=== PATIENT | female | born 1945 | race Two or more races ===

== ENCOUNTER 2020-01-22 12:05 | Observation (INO) | payer MEDICARE, OTHER ==
[~2020-01-22] VITALS: Ht 147.3 cm; Wt 72.4 kg
[2020-01-22] MEDS ORDERED: MECLIZINE CHEWABLE 25 MG TAB PO ONE (13:00)
[2020-01-22] MEDS ORDERED: ONDANSETRON 2MG/ML, 2ML IVPush ONE (13:00)
[2020-01-22] MEDS ORDERED: SODIUM CHLORIDE 0.9% 1,000ML IVBOLUS ONE (13:00)
[2020-01-22] MEDS ORDERED: SODIUM CHLORIDE FLUSH 10ML SYR IVF ONE (13:00)
--- NOTE | 2020-01-22 13:08 | NUR ---
lab at bedside
[2020-01-22 13:20] LABS: BASOPHILS # (AUTO) 0.01 x10^3/uL (0-0.1); BASOPHILS % (AUTO) 0 % (0-1); EOSINOPHILS # (AUTO) 0.14 x10^3/uL (0-0.4); EOSINOPHILS % (AUTO) 1 % (1-7); LYMPHOCYTES # (AUTO) 1.28 x10^3/uL (1-3.4); LYMPHOCYTES % (AUTO) 12 % (22-44); MD NO; MEAN CORPUSCULAR HEMOGLOBIN 30.6 pg (27.0-34.8); MEAN CORPUSCULAR HGB CONC 33.9 g/dL (32.4-35.8); MEAN PLATELET VOLUME 6.6 fL (7.4-10.4); MONOCYTES # (AUTO) 0.44 x10^3/uL (0.2-0.8); MONOCYTES % (AUTO) 4 % (2-9); NEUTROPHILS # (AUTO) 9.07 x10^3/uL (1.8-6.8); NEUTROPHILS % (AUTO) 83 % (42-75); PLATELET COUNT 314 x10^3/uL (130-400); RED BLOOD COUNT 4.82 x10^6/uL (3.82-5.3); RED CELL DISTRIBUTION WIDTH 12.7 % (9.6-15.2)
[2020-01-22 13:30] LABS: ALANINE AMINOTRANSFERASE 60 U/L (12-78); ALBUMIN 3.6 g/dL (3.4-5.0); ANION GAP 12 mmol/L (5-15); CALCIUM 8.7 mg/dL (8.5-10.1); CHLORIDE 82 mmol/L (98-107); CREATININE 0.63 mg/dL (0.55-1.02)
[2020-01-22 13:34] LABS: ALKALINE PHOSPHATASE 72 U/L (45-117); BILIRUBIN,TOTAL 0.5 mg/dL (0.2-1.0); TOTAL PROTEIN 8.2 g/dL (6.4-8.2); TROPONIN I < 0.015 ng/mL (0.000-0.045)
[2020-01-22] MEDS ORDERED: ONDANSETRON ODT 4 MG ONE (13:34)
[2020-01-22] MEDS ORDERED: MECLIZINE CHEWABLE 25 MG TAB ONE (13:34)
[2020-01-22 13:40] LABS: MICROSCOPIC AUTO
[2020-01-22 13:41] LABS: SALICYLATE LEVEL < 1.7 mg/dL (2.8-20.0)
--- NOTE | 2020-01-22 14:14 | NUR ---
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 rhythm nsr with rare pvcs noted- ekg obtained-provider made aware
[2020-01-22] MEDS ORDERED: NS + 40MEQ KCL 1,000 ML IV ONE ×2 (14:28→14:32)
[2020-01-22] MEDS ORDERED: CEFTRIAXONE PMX 1GM/50ML 50 ML IVPB ONE (14:30)
[2020-01-22] MEDS ORDERED: POTASSIUM CHLORIDE 20 MEQ TAB.ER.PRT PO ONE ×3 (14:30→18:00)
--- NOTE | 2020-01-22 14:30 | NUR ---
RATE ON NS FLUID BLOUS QUESTIONED WITH PROVIDER SODIUM 129 -PROVIDER WOULD LIKE INFUSED AT BOLUS RATE
[2020-01-22] MEDS ORDERED: POTASSIUM CHLORIDE 20 MEQ TAB.ER.PRT ONE ×2 (14:31→17:32)
[2020-01-22] MEDS ORDERED: CEFTRIAXONE PMX 1GM/50ML 0 ML ONE (14:31)
[2020-01-22] MEDS ORDERED: ONDANSETRON 2MG/ML, 2ML ONE (14:32)
--- NOTE | 2020-01-22 15:01 | NUR ---
LAB AT BEDSIDE- 2 SET OF BLOOD CULTURES AND LACTATE OBTAINED- TO ADMIN ABX SHORTLY WITH REASSESSMENT NAUSEA IMPTROVED TO 07/10 PROVIDER TO BEDSIDE TO EXPLAIN POC
[2020-01-22] MEDS ORDERED: DILTIAZEM 5 MG/ML, 5ML IVPush PRN (15:30)
[2020-01-22] MEDS ORDERED: PROMETHAZINE 25 MG/ML, 1ML IM PRN (15:30)
[2020-01-22] MEDS ORDERED: LABETALOL 5MG/ML, 20ML IVPush PRN ×2 (15:30)
[2020-01-22] MEDS ORDERED: ONDANSETRON 2MG/ML, 2ML IVPush PRN (15:30)
[2020-01-22] MEDS ORDERED: ACETAMINOPHEN 325 MG TABLET PO PRN (15:30)
[2020-01-22] MEDS ORDERED: BISACODYL 10 MG SUPP PR PRN (15:30)
[2020-01-22] MEDS ORDERED: MELATONIN 5 MG TABLET PO PRN (15:30)
[2020-01-22] MEDS ORDERED: POLYETHYLENE GLYCOL 17 GM PACKET PO PRN (15:30)
[2020-01-22 15:50] LABS: CHLORIDE,URINE RANDOM 178 mmol/L; POTASSIUM,URINE RANDOM 77 mmol/L; SODIUM,URINE RANDOM 126 mmol/L
[2020-01-22 16:54] LABS: ANION GAP 13 mmol/L (5-15); CALCIUM 8.3 mg/dL (8.5-10.1); CHLORIDE 84 mmol/L (98-107); CREATININE 0.49 mg/dL (0.55-1.02)
[2020-01-22] MEDS ORDERED: AMLODIPINE 2.5 MG TABLET PO ONE (17:00)
[2020-01-22] MEDS ORDERED: MAGNESIUM SULFATE PMX 2GM/50ML 50 ML IV ONE (17:00)
[2020-01-22] MEDS ORDERED: MECLIZINE 25 MG TABLET PO PRN (17:00)
--- NOTE | 2020-01-22 17:01 | NUR ---
Patient remains dizzy/nauseated. Patient asking if she can defer po potassium. Outsole Splicer to call hospitalist To Ct scan at 1701
[2020-01-22] MEDS ORDERED: SODIUM CHLORIDE 0.9% 1,000 ML IV SCH (17:30)
[2020-01-22] MEDS ORDERED: PROMETHAZINE 25 MG/ML, 1ML ONE (17:31)
[2020-01-22] MEDS ORDERED: MAGNESIUM SULFATE PMX 2GM/50ML 50 ML ONE (17:32)
[2020-01-22] MEDS ORDERED: POTASSIUM CHLORIDE 40 MEQ in SODIUM CHLORIDE 0.9% 500 ML IV ONE (18:00)
[2020-01-22 19:25] VITALS: BP 145/78
[2020-01-22 19:41] LABS: TROPONIN I < 0.015 ng/mL (0.000-0.045)
[2020-01-22] MEDS: ENOXAPARIN 40 MG/0.4 ML SQ SCH (19:53)
[2020-01-22 21:27] LABS: OSMOLALITY,URINE 543 mOsm/kg (500-850)
[2020-01-22 23:30] LABS: ANION GAP 11 mmol/L (5-15); CALCIUM 8.3 mg/dL (8.5-10.1); CHLORIDE 91 mmol/L (98-107); CREATININE 0.79 mg/dL (0.55-1.02)
[2020-01-23 00:07] VITALS: BP 132/75
[2020-01-23 05:59] LABS: BASOPHILS # (AUTO) 0.03 x10^3/uL (0-0.1); BASOPHILS % (AUTO) 0 % (0-1); EOSINOPHILS # (AUTO) 0.09 x10^3/uL (0-0.4); EOSINOPHILS % (AUTO) 1 % (1-7); LYMPHOCYTES # (AUTO) 2.21 x10^3/uL (1-3.4); LYMPHOCYTES % (AUTO) 19 % (22-44); MD NO; MEAN CORPUSCULAR HEMOGLOBIN 29.9 pg (27.0-34.8); MEAN PLATELET VOLUME 6.1 fL (7.4-10.4); MONOCYTES # (AUTO) 1.17 x10^3/uL (0.2-0.8); MONOCYTES % (AUTO) 10 % (2-9); NEUTROPHILS # (AUTO) 7.95 x10^3/uL (1.8-6.8); NEUTROPHILS % (AUTO) 69 % (42-75); PLATELET COUNT 318 x10^3/uL (130-400); RED BLOOD COUNT 4.59 x10^6/uL (3.82-5.3)
[2020-01-23 06:12] LABS: CHLORIDE 97 mmol/L (98-107)
[2020-01-23 06:31] LABS: ANION GAP 7 mmol/L (5-15); CALCIUM 8.7 mg/dL (8.5-10.1); CREATININE 0.69 mg/dL (0.55-1.02)
[2020-01-23 06:40] VITALS: BP 131/74
[2020-01-23] MEDS ORDERED: SITA100T PO (07:31)
[2020-01-23] MEDS ORDERED: VALS1TAB30 PO (07:31)
[2020-01-23] MEDS ORDERED: AMLO5TAB4 PO (07:31)
[2020-01-23] MEDS ORDERED: IBUP-1223 PO (07:47)
[2020-01-23] MEDS: metFORMIN 500 MG TABLET PO SCH (08:41)
[2020-01-23] MEDS: VALSARTAN 80 MG TABLET PO SCH (08:41)
[2020-01-23] MEDS: SENNA/DOCUSATE TABLET PO SCH (08:50)
[2020-01-23] MEDS ORDERED: SODIUM CHLORIDE 0.45% 1,000 ML IV SCH (09:30)
[2020-01-23 09:50] LABS: ANION GAP 7 mmol/L (5-15); CALCIUM 8.3 mg/dL (8.5-10.1); CHLORIDE 101 mmol/L (98-107); CREATININE 0.86 mg/dL (0.55-1.02)
[2020-01-23 12:14] VITALS: BP 129/68
[2020-01-23 15:41] LABS: ANION GAP 8 mmol/L (5-15); CALCIUM 8.7 mg/dL (8.5-10.1); CHLORIDE 102 mmol/L (98-107); CREATININE 0.87 mg/dL (0.55-1.02)
[2020-01-23] MEDS: DEXTROSE 5% 1,000 ML IV SCH (16:48)
[2020-01-23] MEDS: ENOXAPARIN 40 MG/0.4 ML SQ SCH (16:49)
[2020-01-23 18:46] VITALS: BP 134/79
[2020-01-23 21:25] LABS: ANION GAP 7 mmol/L (5-15); CALCIUM 8.3 mg/dL (8.5-10.1); CHLORIDE 106 mmol/L (98-107); CREATININE 0.71 mg/dL (0.55-1.02)
[2020-01-24] MEDS: DEXTROSE 5% 1,000 ML IV SCH ×2 (00:30→10:01)
[2020-01-24 02:10] VITALS: BP 124/81
[2020-01-24 05:05] LABS: ANION GAP 6 mmol/L (5-15); CALCIUM 8.4 mg/dL (8.5-10.1); CHLORIDE 105 mmol/L (98-107); CREATININE 0.68 mg/dL (0.55-1.02)
[2020-01-24 06:31] VITALS: BP 148/76
[2020-01-24] MEDS: metFORMIN 500 MG TABLET PO SCH (08:32)
[2020-01-24] MEDS: VALSARTAN 80 MG TABLET PO SCH (08:33)
[2020-01-24] MEDS: SENNA/DOCUSATE TABLET PO SCH (08:35)
[2020-01-24 09:36] LABS: ANION GAP 6 mmol/L (5-15); CALCIUM 8.7 mg/dL (8.5-10.1); CHLORIDE 103 mmol/L (98-107); CREATININE 0.78 mg/dL (0.55-1.02)
[2020-01-24 12:25] VITALS: BP 172/86
[2020-01-24] MEDS ORDERED: IBUPROFEN 200 MG TABLET PO PRN (14:00)
[2020-01-24 15:24] LABS: ANION GAP 8 mmol/L (5-15); CALCIUM 8.5 mg/dL (8.5-10.1); CHLORIDE 101 mmol/L (98-107); CREATININE 0.74 mg/dL (0.55-1.02)
[2020-01-24] MEDS ORDERED: VALS320T2 PO (15:41)
[2020-01-24] MEDS ORDERED: AMLO10TA8 PO (15:41)
== END 2020-01-24 17:06 | disposition home or self-care (01) ==
LOC: ED 13:58 → EDIP 14:26 → INTOOBSV 14:26 → 4WST 17:59
PROVIDERS: ADMIT Internal Medicine; ATTEND Internal Medicine
DX: R42 Dizziness and giddiness (principal); E87.1 Hypo-osmolality and hyponatremia; E87.6 Hypokalemia; D32.9 Benign neoplasm of meninges, unspecified; I10 Essential (primary) hypertension; E11.9 Type 2 diabetes mellitus without complications; J45.909 Unspecified asthma, uncomplicated; N30.90 Cystitis, unspecified without hematuria; K59.09 Other constipation; G89.29 Other chronic pain; M54.9 Dorsalgia, unspecified; E78.00 Pure hypercholesterolemia, unspecified; K59.00 Constipation, unspecified; T50.2X5A Adverse effect of carbonic-anhydrase inhibitors, benzothiadiazides and other diuretics, initial encounter; Z79.899 Other long term (current) drug therapy; Z79.84 Long term (current) use of oral hypoglycemic drugs
CPT/HCPCS: 36415; 70450; 80048; 80053; 80307; 81001; 82436; 83036; 83605; 83735; 83930; 83935; 84133; 84300; 84443; 84484; 85025; 87040; 87086; 93005; 96361; 96365; 96366; 96368; 96372; 96375; 97162; 99285; G0378; J1650; J2405; J2550; J3475; J3480; J7030; J7070